=== PATIENT | male | born 1995 | race African-American/Black ===

== ENCOUNTER 2021-03-23 06:26 | Emergency (ER) | payer SELFPAY ==
[~2021-03-23] VITALS: Ht 172.7 cm; Wt 113.6 kg
[2021-03-23 08:30] VITALS: BP 135/82
== END 2021-03-23 08:32 | disposition home or self-care (01) ==
LOC: EMS 06:28
DX: K02.9 Dental caries, unspecified (principal)
CPT/HCPCS: 99283

== ENCOUNTER 2021-04-04 23:26 | Emergency (ER) | payer BC ==
[~2021-04-04] VITALS: Ht 172.7 cm; Wt 111.4 kg
[2021-04-05 01:54] VITALS: BP 144/86
== END 2021-04-05 02:00 | disposition home or self-care (01) ==
LOC: EMS 23:28
DX: K08.89 Other specified disorders of teeth and supporting structures (principal)
CPT/HCPCS: 99281; 99283